=== PATIENT | female | born 1970 | race Caucasian/White ===

== ENCOUNTER 2024-11-29 10:48 | Outpatient (CLI) | payer OTHER, SELFPAY ==
--- NOTE | 2024-11-29 11:00 | CRLHL7_ITS ---
For Patients: As a result of the Century Cures Act, medical imaging exams and procedure reports are released immediately into your electronic medical record. You may view this report before your referring provider. If you have questions, please contact your health care provider. Indication: EVALUATING FOR ABDOMINAL HERNIA; LUMP IN RUQ OF ABDOMEN, PATIENT NOTED THE LUMP AFTER LIFTING WEIGHTS Technique: CT Abdomen/Pelvis WITHOUT; WITH VALSALVA MANEUVER Please note that all CT scans at this facility use dose modulation, iterative reconstruction, and/or weight-based dosing when appropriate to reduce radiation dose to as low as reasonably achievable. Comparison: None Findings: Lung bases are clear. No pleural effusion or pulmonary nodule. Noncontrast enhanced liver and spleen are within normal limits. Peripherally calcified gallstones in the gallbladder lumen are noted measuring up to 2.7 cm. No biliary obstruction. No hiatal hernia. Pancreas is normal. Normal adrenal glands. No renal stones. No hydronephrosis. Ureters are within normal limits. Normal bladder. Uterus is unremarkable. Normal ovaries. No bowel obstruction or free air. No free fluid. Normal appendix. No inguinal or pelvic adenopathy. Fat filled hernia is present in the supraumbilical abdominal wall. The hernia measures 5.6 x 3.0 x 4.4 cm. The neck measures 1.6 cm. No fluid collection. No bowel involvement. No fracture. No intrinsic osseous lesion. Impression: Midline supraumbilical abdominal wall hernia containing fat measuring 5.6 x 3.0 x 4.4 cm with a neck measuring 1.6 cm. Cholelithiasis. Please note that all CT scans at this facility use dose modulation, iterative reconstruction, and/or weight-based dosing when appropriate to reduce radiation dose to as low as reasonably achievable. Dictated by Darion Diamond MD @ 11/29/2024 12:20:13 PM (Electronically Signed)
== END 2024-11-29 10:49 | disposition home or self-care (01) ==
LOC: CT 10:49
PROVIDERS: PCP Physician Assistant Medical; Visit Provider Physician Assistant Medical
DX: K46.9 Unspecified abdominal hernia without obstruction or gangrene (principal); K43.9 Ventral hernia without obstruction or gangrene; K80.20 Calculus of gallbladder without cholecystitis without obstruction
CPT/HCPCS: 74176

== ENCOUNTER 2025-03-19 08:11 | Day surgery (SDC) | payer OTHER, SELFPAY ==
[2025-03-19] VITALS (15 sets, daily range): BP systolic 111–156; BP diastolic 59–100; PULSE 59–81; RESP 10–16; TEMP 36.2–36.5; O2SAT 83–100; BMI 32.9
[2025-03-19] MEDS: LACTATED RINGERS 1000 ML 1,000 ML 100 ML IV ×2 (08:50→11:35)
[2025-03-19] MEDS: SODIUM CHLORIDE 0.9 % (FLUSH) 10 ML SYRINGE IVF (08:56)
--- NOTE | 2025-03-19 09:37 | P.GSOP_ITS ---
Operative Note Date of procedure: 03/19/25 Pre-op diagnosis: Epigastric and umbilical hernia Post-op diagnosis: Same Type of Procedure: Laparoscopic repair of umbilical and epigastric hernias, 1 cm and 1.5 cm Indications: The patient is a 54-year-old female who presented to clinic with an abdominal bulge that she 1st noticed while she was lifting weights at the gym. She did have a CT scan which showed a fat containing epigastric and a small umbilical hernia. The fascial opening of each hernia was fairly small, however they were were cm apart, therefore I recommended laparoscopic repair. After discussion of risks and benefits she agreed to proceed. Procedure Description: After discussing the risks and benefits of the procedure, the patient signed informed consent.? The operative site was marked and the patient was brought to the operating room and placed on the operating table in supine position.? Care was taken to pad the patient's pressure points.?? The patient was then intubated by anesthesia.?? Her arms were then tucked at her sides. The operative site was then prepped and draped in the usual sterile fashion.? A time-out was then performed. Entrance to the abdomen was gained via Visiport technique in the left upper quadrant. The layers of the abdominal wall were visualized as I passed through. The abdomen was then insufflated briefly surveyed. There was no sign of injury. An epigastric hernia just at the base of the falciform ligament was noted. This was containing omental fat. An umbilical defect was noted as well. I began by placing 2 5 mm working ports in the left lower and left mid abdomen. I was able to reduce the omentum from the hernia. I then incised the peritoneum and removed the falciform ligament from the fascia. This was done using LigaSure. I then incised the peritoneum at the umbilicus and removed preperitoneal fat which was contained within a small defect. Once this was done, I upsized the left upper quadrant port to a 12 mm port and through this advanced an 0 Stratafix suture. Both fascial defects were then closed primar garcia. The superior defect measured 1.5 cm in the umbilical defect measured 1 cm. I brought the Stratafix suture down through the fascia at the midpoint between the 2 hernias. I then advanced up use of Bard polypropylene mesh with Seprafilm barrier, 8 x 12 cm through the 12 port and, using the Stratafix suture, tacked it to the midpoint between the hernias and then pulled this to the abdominal wa ll. The suture from the needle was then removed from the abdomen. I then used an absorbable Tacker to tack the mesh in place. I then used a 2-0 Stratafix suture to affix the mesh to the fascia at the periphery. I was able to do this in every location except for the left upper aspect of the mesh. The Tacker was used to affix the mesh in this location. Once this was done, I did notice that the patient appeared to still have a bulge at the initial area of the epigastric hernia. I was concerned that there could have been preperitoneal fat that had been missed consistent was obviously palpable, I elected to make a small incision over this hernia in dissect down to the subcutaneous fat. There I encountered the hernia sac which had been insufflated. This was excised. The fascia below was intact. There was no preperitoneal fat noted. I then closed the left upper quadrant port site with 0 Vicryl using a Dav-Kelsy device. Was then desufflated. The midline incision was closed with 3-0 Vicryl dermal suture. The midline and right upper quadrant port sites were closed with 4-0 Monocryl running subcuticular suture and 2 additional port sites were closed with 4-0 Monocryl subcuticular suture. Exparel was injected into the subcutaneous tissue and fascia around the incisions. Glue was then applied. The patient was then woken and transported to the recovery area in stable condition. ? The patient tolerated the procedure well. Findings: Ventral hernia x2, 1 at the umbilicus measuring 1 cm and 1 in the epigastric region measuring 1.5 cm Anesthesia: GETA Surgeon: Alisha Tadeo MD Estimated blood loss (mL): 5 Condition: stable Disposition: PACU
--- NOTE | 2025-03-19 09:37 | W.PM.H&PU ---
History & Physical Update History & Physical Update H&P Reviewed and patient assessed: No changes noted
[2025-03-19] MEDS: BUPIVACAINE 0.25% 30 ML INJECTION (09:56)
[2025-03-19] MEDS: BUPIVACAINE LIPOSOME 133 MG/10 ML INJ INFILTRATI (11:16)
--- NOTE | 2025-03-19 11:44 | P.ANES_ITS ---
Anesthesia Charges Start Date/Time Anesthesia Start Date: 03/19/25 Anesthesia Start Time: 09:28 Stop Date/Time Anesthesia Stop Date: 03/19/25 Anesthesia Stop Time: 11:40 Coding CPT Codes CPT Codes: ANESTH REPAIR OF HERNIA - 71639 ([id number]) P2 - PATIENT W/MILD SYST DISEASE, QK - DRILL SHARPENER 2-4 CNCRNT ANES PROC, QX - SHIPYARD PAINTER APPRENTICE SVC W/ MD MED DIRECTION
--- NOTE | 2025-03-19 11:44 | W.ANESCHARGE ---
Anesthesia Charges Start Date/Time Anesthesia Start Date: 03/19/25 Anesthesia Start Time: 09:28 Stop Date/Time Anesthesia Stop Date: 03/19/25 Anesthesia Stop Time: 11:40 Coding CPT Codes CPT Codes: ANESTH REPAIR OF HERNIA - 23874 ([id number]) P2 - PATIENT W/MILD SYST DISEASE, QK - AUTO AIR CONDITIONING APPRENTICE 2-4 CNCRNT ANES PROC, QX - DIRECTOR OF SPECIAL SERVICES SVC W/ MD MED DIRECTION
--- NOTE | 2025-03-19 12:25 | P.ANES_ITS ---
Anesthesia Charges Start Date/Time Anesthesia Start Date: 03/19/25 Anesthesia Start Time: 09:28 Stop Date/Time Anesthesia Stop Date: 03/19/25 Anesthesia Stop Time: 11:40 Coding CPT Codes CPT Codes: ANESTH REPAIR OF HERNIA - 01625 ([id number]) P2 - PATIENT W/MILD SYST DISEASE, QK - COMPUTER APPLICATIONS INSTRUCTOR 2-4 CNCRNT ANES PROC, QX - DISTRIBUTOR ADVERTISING MATERIAL SVC W/ MD MED DIRECTION
--- NOTE | 2025-03-19 12:25 | W.ANESCHARGE ---
Anesthesia Charges Start Date/Time Anesthesia Start Date: 03/19/25 Anesthesia Start Time: 09:28 Stop Date/Time Anesthesia Stop Date: 03/19/25 Anesthesia Stop Time: 11:40 Coding CPT Codes CPT Codes: ANESTH REPAIR OF HERNIA - 74285 ([id number]) P2 - PATIENT W/MILD SYST DISEASE, QK - BUSINESS APPLICATIONS ANALYST 2-4 CNCRNT ANES PROC, QX - HARBOUR MASTER SVC W/ MD MED DIRECTION
[2025-03-19] MEDS: HYDROCODONE-ACETAMIN 5-325 MG 1 TAB PO (13:13)
== END 2025-03-19 14:08 | disposition home or self-care (01) ==
PROVIDERS: PCP Physician Assistant Medical; Visit Provider Surgery
PROC: 0WQF4ZZ Repair Abdominal Wall, Percutaneous Endoscopic Approach (ICD-10-PCS; CPT 49591; principal; 2025-03-19 09:30)
DX: K43.9 Ventral hernia without obstruction or gangrene (principal); K42.9 Umbilical hernia without obstruction or gangrene
CPT/HCPCS: 49591; 00832; A4467; A9270; C1781; J0665; J0666; J0690; J1100; J1171; J1885; J2250; J2405; J2704; J2710; J3010; J3490; J7120

== ENCOUNTER 2025-04-10 07:58 | Outpatient (CLI) | payer OTHER, SELFPAY ==
--- NOTE | 2025-04-10 08:00 | CRLHL7_ITS ---
For Patients: As a result of the 21st Century Cures Act, medical imaging exams and procedure reports are released immediately into your electronic medical record. You may view this report before your referring provider. If you have questions, please contact your health care provider. INDICATION: Conductive hearing loss, unspecified TECHNIQUE: CT of the temporal bones without contrast. Coronal and axial small field of view reconstructions of both temporal bones are included. COMPARISON: No prior studies are available for comparison at this institution. FINDINGS: RIGHT temporal bone: The external auditory canal is widely patent. No EAC stenosis or obstruction. The tympanic membrane is not thickened. The right middle ear is clear. No material is present within the sinus tympani. The ossicles are normal in appearance and location with no erosions or dislocation. The otic capsule is normal in appearance. No sclerosis within the labyrinthine canal. No fistula between the labyrinth and the middle ear. The vestibule and semicircular canals are normal in morphology with no evidence of semicircular canal dehiscence. Normal cochlear morphology with appropriate number of turns. Vestibular aqueduct is normal in size. Facial nerve canal is intact and normal in course/caliber. Petrous apex is normal. Mastoid air cells are clear. The carotid canal and jugular foramen are normal. LEFT temporal bone: The external auditory canal is widely patent. No EAC stenosis or obstruction. The tympanic membrane is not thickened. The left middle ear is clear. No material is present within the sinus tympani. The ossicles are normal in appearance and location with no erosions or dislocation. The otic capsule is normal in appearance. No sclerosis within the labyrinthine canal. No fistula between the labyrinth and the middle ear. The vestibule and semicircular canals are normal in morphology with no evidence of semicircular canal dehiscence. Normal cochlear morphology with appropriate number of turns. Vestibular aqueduct is normal in size. Facial nerve canal is intact and normal in course/caliber. Petrous apex is normal. Mastoid air cells are clear. The carotid canal and jugular foramen are normal. OTHER: No fracture or significant degenerative change, lytic or blastic process is demonstrated in the skull base or temporomandibular joints. The imaged intracranial structures are normal in appearance. Orbits are normal. Imaged soft tissue structures are normal in appearance. Mild mucosal in the right maxillary sinus. Rightward deviation of the septum. IMPRESSION: Unremarkable CT of the temporal bones. Please note that all CT scans at this facility use dose modulation, iterative reconstruction, and/or weight-based dosing when appropriate to reduce radiation dose to as low as reasonably achievable. Dictated by Darion Renee MD @ 04/10/2025 12:29:16 PM (Electronically Signed)
== END 2025-04-10 07:59 | disposition home or self-care (01) ==
LOC: CT 07:59
PROVIDERS: PCP Physician Assistant Medical; Visit Provider Physician Assistant
DX: H90.2 Conductive hearing loss, unspecified (principal); J32.0 Chronic maxillary sinusitis
CPT/HCPCS: 70480

== ENCOUNTER 2025-05-01 10:19 | Outpatient (CLI) | payer OTHER, SELFPAY ==
--- NOTE | 2025-05-08 14:01 | W.PM.SLEEP ---
Sleep Study Details Details Interpreting Provider: Carrol Date of Sleep Study: 05/01/25 Sleep Study Details: STUDY TYPE:? Home unattended ? BMI:? 33.12 ORDERING PROVIDER:? Carrol INDICATION:? Concern for sleep apnea ? SLEEP SUMMARY:? 438 minutes sleep time monitored RESPIRATORY SUMMARY:? AHI 27.8 Low oxygen 70 7.5% of study oxygen less than 90% Snoring 97% PERIODIC LIMB MOVEMENTS OF SLEEP:? Not recorded CARDIAC:? Range 56-113, mean 82 beats per minute IMPRESSION:? Moderate obstructive sleep apnea RECOMMENDATION: Treatment options include CPAP dental appliance.
== END 2025-05-01 10:20 | disposition home or self-care (01) ==
PROVIDERS: PCP Physician Assistant Medical; Visit Provider Otolaryngology
DX: G47.33 Obstructive sleep apnea (adult) (pediatric) (principal)
CPT/HCPCS: 95806